=== PATIENT | female | born 1980 | race Caucasian/White ===

== ENCOUNTER 2023-02-25 16:23 | Outpatient (CLI) | payer OTHER, SELFPAY ==
--- NOTE | ~2023-02-25 | MM_ITS ---
EXAMINATION: MM screening amanda BI w maikel HISTORY: Screening mammogram TECHNIQUE: Craniocaudal and mediolateral oblique 3-D tomosynthesis images were obtained and synthetic 2-D images were generated. CAD analysis was submitted and interpreted. COMPARISON: No prior mammogram is available for comparison at this institution. BREAST PARENCHYMAL COMPOSITION: There are scattered areas of fibroglandular density. FINDINGS: There is no evidence of suspicious mass, calcification, or architectural distortion to sugg est malignancy in either breast. There has been no suspicious interval change. IMPRESSION: 1. No mammographic evidence of malignancy. 2. Recommend routine screening mammography in one year. BI-RADS Category 1: Negative Reviewed, dictated and finalized at location A.
== END 2023-02-25 16:24 | disposition home or self-care (01) ==
LOC: ANHIMG 16:25
PROVIDERS: Visit Provider Obstetrics & Gynecology Gynecology
DX: Z12.31 Encounter for screening mammogram for malignant neoplasm of breast (principal)
CPT/HCPCS: 77063; 77067

== ENCOUNTER 2024-10-11 11:56 | Outpatient (CLI) | payer MEDICAID, SELFPAY ==
--- NOTE | ~2024-10-11 | US_ITS ---
US OB <=14 wk fetus w TV Ordering provider: Lila Giordano MD History: . spotting first trimester . Comparison: None. Technique: Transabdominal and endovaginal ultrasound of the pelvis (Doppler ultrasound interrogation techniques used as needed for this exam.) FINDINGS: CERVIX: Normal. UTERUS: Measures 9.2x 4.8x 5.7 cm in length which is within normal limits and is anteverted. No myom etrial masses. ENDOMETRIUM: Diffusely thickened measuring 17 mm. (No endometrial masses, cysts or fluid. No gestatio nal sac seen. CUL DE SAC: No free fluid. RIGHT OVARY: Normal in size measuring 3.4x 1.6x 1.7 cm. Normal echotexture. Doppler vascular flow pre sent. Simple cyst measuring 2.9 x 1.2 x 1.5 cm. LEFT OVARY: Normal in size measuring 1.8x 1.2x 2 cm. Normal echotexture. Doppler vascular flow presen t. ADNEXA: Normal. No mass. IMPRESSION: Thickened heterogeneous endometrium measuring 17 mm with no gestational sac. Follow-up advised. Right ovarian cyst. Otherwise, normal pelvic ultrasound. Reviewed, dictated and finalized at location A. IMPRESSION: Thickened heterogeneous endometrium measuring 17 mm with no gestational sac. Fo llow-up advised. Right ovarian cyst. Otherwise, normal pelvic ultrasound.
--- OUTSIDE RECORDS SUMMARY | 2024-10-11 14:25 | XMS_ITS | Clinical Summary ---
Author Organization [facility] Address [address] [place] [address] Care Team Providers Care Rat Exterminator Name Role Phone Rashaad Ramirez APRN Primary Care Provid er Allergies No known active allergies Encounters Date Type Department Care Team Description 10/08/2024 8:41 AM CDT - 10/08/2024 11:59 PM CDT Hospital Encounter [facility] Ultrasound [address] [place] [address] Encounter for screening for uncertain dates Discharge Disposition: Discharge to home or self care from Last 3 Months Surgical History Surgery Date Site/Laterality Comments US GUIDED BIOPSY LYMPH NODE SUPERFICIAL LEFT N/A BREAST BIOPSY 05/26/2024 Right Social History Tobacco Use Types Packs/Day Years Used Date Smoking Tobacco: Never Assessed Comments Unknown Sex and Gender Information Value Date Recorded Sex Assigned at Not on file Legal Sex Female 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 Gender Identity Not on file Sexual Orientation Not on file Obstetrics History Plan of Treatment Health Maintenance Due Date Last Done Comments Breast Cancer Screening-Mammogram 1982 Cervical Cancer Screening 1982 Depression Screening 1982 Hepatitis C Screening 1982 DTaP/Tdap/Td Vaccine (1 - Tdap) 1993 Varicella Vaccines (1 of 2 - 13+ 2-dose series) 1995 Hepatitis B Screening 02/02/2000 Regular Well Visit/Exam 18-64 02/02/2000 Covid-19 Vaccine (3 - 2023-2 5 season) 2024 04/04/2021, 03/07/2021 Influenza Vaccine Completed 04/02/2024, 05/16/2022, 04/27/2020 HPV Vaccines Aged Out No longer eligi ble based on patient's age to complete this topic Pneumococcal vaccine <65 Aged Out No longer eligible based on patient's age to complete this topic Insurance [employer] Care Teams Rat Exterminator Relationship Specialty Start Date End Date Rashaad Ramirez APRN [address] [place] [address] PCP - General Nurse Practitioner 06/03/24
--- OUTSIDE RECORDS SUMMARY | 2024-10-11 14:25 | XMS_ITS | Referral Summary ---
Author Organization [facility] Address [address] [place] [address] Care Team Providers Care Political Science Research Assistant Name Role Phone Yola Maya MD Primary Care Provider + Source Comments [facility],non-owned Affiliates and Associated Physician Practices is amultiple site organization consisting of ambulatory clinics and hospital sitesin [place], [place], [place] and [place]. This disclosure is being madepursuant to the Care Everywhere program and may not contain all information available regarding this patient. Last updated 18.[facility] Allergies No known active allergies Medications * Be aware that medications may not be up to date on this document. Alwaysverify current medications with the patient. Medication Sig Dispensed Refills Start Date End Date Status BusPIRone HCl (BUSPAR PO) Active LISINOPRIL PO Active medroxyPROGESTERone Acetate (DEPO-PROVERA IM) Active Social History Tobacco Use Types Packs/Day Years Used Date Smoking Tobacco: Every Day Smokeless Tobacco: Never Sex and Gender Information Value Date Recorded Sex Assigned at Not on file Gender Identity Not on file Sexual Orientation Not on file Last Filed Vital Signs Vital Sign Reading Time Taken Comments Blood Pressure 114/66 09/24/2019 3:15 PM STORE CONSULTANT Pulse 98 09/24/2019 3:15 PM STORE CONSULTANT Temperature 36.8 C (98.3 F) 09/24/2019 3:15 PM STORE CONSULTANT Respiratory Rate 16 09/24/2019 3:15 PM STORE CONSULTANT Oxygen Saturation 98% 09/24/2019 3:15 PM STORE CONSULTANT Inhaled Oxygen Concentration - - Weight 108.9 kg (240 lb) 09/24/2019 3:15 PM STORE CONSULTANT Height 175.3 cm (5' 9 ) 09/24/2019 3:15 PM STORE CONSULTANT Body Mass Index 35.44 09/24/2019 3:15 PM STORE CONSULTANT Plan of Treatment Not on file Care Teams Political Science Research Assistant Relationship Specialty Start Date End Date Yola Maya MD [address] [place] [address] PCP - General Internal Medicine 09/24/19
--- OUTSIDE RECORDS SUMMARY | 2024-10-11 14:25 | XMS_ITS | Continuity of Care Document ---
Author Organization [employer] [place] Address [address] [place] [address] Phone Care Team Providers Care Advanced Practice Nurse Name Role Phone Yola Hancock DO Unavailable Unavailable Allergies, Adverse Reactions, Alerts Substance Reaction Status Criticality No Known Allergies Active No Inform ation Medications Medication Instructions Dosage Effective Dates (start - stop) Status Comments venlafaxine ER 150 mg capsule,extended release 24 hr TAKE ONE CAPSULE BY MOUTH every DAY - Active hydrochlorothiazide 25 mg tablet take 1 tablet by oral route every day 25 MG - Active prednisone 50 mg tablet take 1 tablet by oral route every day 50 MG - Active albuterol sulfate HFA 90 mcg/actuation aerosol inhaler inhale 2 puff by inhalation route every 4 - 6 hours as needed as needed 180 MCG - Active Augmentin 875 mg-125 mg tablet take 1 tablet by oral route every 12 hours - Active Guaifenesin AC 10 mg-100 mg/5 mL oral liquid take 10 milliliter by oral route every 4 hours as needed as needed 10.00 milliliter - Active Tessalon Perles 100 mg capsule take 1 capsule by oral route 3 times every day as needed for cough as needed - Active bupropion HCl XL 150 mg 24 hr tablet, extended release take 1 tablet by oral route every day 150 MG - Active lisinopril 20 mg tablet take 1 tablet by oral route every day 20 MG - Active increased dose desoximetasone 0.25 % topical cream apply by topical route 2 times every day a thin layer to the affected area(s) ; rub in gently and completely 0.00 - Active FerrouSul 325 mg (65 mg iron) tablet take 1 by Oral route every day 1 - Active Vitamin D2 1,250 mcg (50,000 unit) capsule take 1 capsule by oral route every week 01235 UNITS - Active Procedures Procedure Date OFFICE [id number] BODY MASS INDEX DOCD SYST BP LT 130 MM HG DIAST BP 80-89 MM HG Brief Emotional/Behavioral A ssessment, With Scoring/Doct, Per Stndrd Instrument Clin depression screen doc Brief Emotional/Behavioral A ssessment, With Scoring/Doct, Per Stndrd Instrument OFFICE [id number] BODY MASS INDEX DOCD SYST BP GE 130 - 139MM HG DIAST BP >= 90 MM HG Brief Emotional/Behavioral A ssessment, With Scoring/Doct, Per Stndrd Instrument Brief Emotional/Behavioral A ssessment, With Scoring/Doct, Per Stndrd Instrument Clin depression screen doc OFFICE [id number] BODY MASS INDEX DOCD SYST BP >= 140 MM HG6 IT DIAST BP 80-89 MM HG Pt inelig neg scrn depres GENERAL HEALTH PANEL LIPID PANEL URINALYSIS, REFLEX (UA) VITAMIN D, 25-HYDROXY ROUTINE VENIPUNCTURE OFFICE [id number] BODY MASS INDEX DOCD SYST BP GE 130 - 139MM HG DIAST BP 80-89 MM HG Advance Directives Directive Yes / No Effective Date File Name Life Support Not Answered N/A N/A Intubation Not Answered N/A N/A Antibiotics Not Answered N/A N/A IV Fluid Support Not Answered N/A N/A Tube Feed Not Answered N/A N/A Other Directive N/A N/A WARNING:The information contained in this section is historical and is provided for information only and does not constitute a legal document or any assurance that the information is still accurate. Please verify the information with the degroot of the legal document before using it for clinical purposes. Encounters Encounter Description Practice Location Reason(s) For Visit Diagnoses Date Provider Providers Copied on Encounter [facility], [address], [place], [place], [id number] , tel: [phone] [facility] No Information 5 Karissa Aceves. [address] [place] [address], [id number] , . tel: [phone] [facility], [address], [place], [place], [id number] , tel: [phone] [facility] Internal Medicine No Information 2 Marley Murphy. [address] [place] [address], [id number] , [place]. tel: [phone] [facility], [address], [place], [place], [id number] , tel: [phone] [facility] Internal Medicine No Information 2 Karissa Aceves. [address] [place] [address], [id number] , [place]. tel: [phone] [facility], [address], [place], [place], [id number] , tel: [phone] [facility] Internal Medicine No Information 1 Karissa Aceves. [address] [place] [address], [id number] , [place]. tel: [phone] [facility], [address], [place], [place], [id number] , [place] tel: [phone] [facility] Internal Medicine No Information 1 Karissa Aceves. [address] [place] [address], [id number] , . tel: [phone] OFFICE [id number]-SD PANDED [facility], [address], [place], [place], [id number] , tel: [phone] [facility] Internal Medicine cough (chief complaint) Body mass index [BMI] 35.0-35.9, adultUpper respiratory tract infection, unspecified type 1 Epplin Katherine. [address] [place] [address], [id number] , [place]. tel: [phone] Referring Provider: Yola Berumen, [address] [place] [address], [address] . tel:[phone] OFFICE TFJNO-UCW-EK [facility], [address], [place], [place], [id number] , tel: [phone] [facility] Internal Medicine Chronic Conditions (chief complaint) Body mass index (BMI) 35.0-35.9, adultMDD (major depressive disorder), recurrent episode, mildAnxietySyncope, unspecified syncope type 1 Epplin Katherine. [address] [place] [address], [id number] , [place]. tel: [phone] Referring Provider: Yola Berumen, [address] [place] [address], [address] . tel:[phone] OFFICE FOOPN-PLH-RC [facility], [address], [place], [place], [id number] , tel: [phone] [facility] Internal Medicine syncope (chief complaint) Body mass index (BMI) 36.0-36.9, adultMDD (major depressive disorder), recurrent episode, mildAnxietyEssential hypertensionSyncope, unspecified syncope type 1 Epplin Katherine. [address] [place] [address] [place], [id number] , . tel: [phone] Referring Provider: Yola Berumen, [address] [place] [address], [address] . tel:[phone] OFFICE SYRSV-AVI-FB -MED [facility], [address], [place], [place], [id number] , [place] tel: [phone] [facility] Internal Medicine Chronic Conditions (chief complaint)n ew pt (chief complaint) Body mass index (BMI) 35.0-35.9, adultSeasonal allergiesEssential hypertensionHyperlip idemia, unspecified hyperlipidemia typeChronic diarrheaAnxietyMDD (major depressive disorder), recurrent episode, mildEczema, unspecified typeTobacco useVitamin D deficiency 1 Marley Murphy. [address] [place] [address], [id number] , . tel: [phone] Referring Provider: Yola Berumen, [address] [place] [address], [address] . tel:[phone] Family History Family Member Type Diagnosis Age At Onset Mother Problem depression Mother Problem hypertension Father Problem Allergies Father Problem depression Mother Problem Irritable bowel syndrome Problem Family history of alzheimer' s disease Mother Problem malignant neopla sm of breast in first degree relative Problem Family history o f malignant neoplasm of urinary bladder Problem Family history of Eczema Sister Problem Mental illness Mother Problem Mental illness Problem Family history of Cardiovasc ular disease Mother Problem Diabetes mellitus Mother Problem Obesity Mother Problem raised blood lipids Father Problem hypertension Immunizations Vaccine Date Status Comments [employer] COVID19 Vacc ine, 0.3mL per dose, 2 doses, administered 21 days apart administered Note: [facility] ; S ource: Other Provider [employer] COVID19 Vacc ine, 0.3mL per dose, 2 doses, administered 21 days apart administered Note: [facility] ; S ource: Other Provider Fl[employer]one Quad, preservative f ree, split virus, 0.5mL dosage administered Note: [employer] ; Source: Other Provider Payers Payer name Insurance type Covered green party ID Authoriza tion(s) No Information Social History Type Description Quantity Date Captured Comments Alcohol Use Details Unknown Caffeine Use Details Unknown Tobacco Use Status Smoking Status No Information Sex Female Sexual Orientation Straight or heterosexual Gender Identity Female Chief Complaint And Reason For Visit No Information Reason For Referral Reason For Referral No Information Plan Of Treatment Date Type Action Status Goal Dietary management education , guidance, and counseling completed Goal Dietary management education , guidance, and counseling completed Goal Dietary management education , guidance, and counseling completed Goal Dietary management education , guidance, and counseling completed Referral Referred To: Edwin Domí[place], [phone] Ordered: Referrals: Cardiology. Edwin Domínguez MD. Evaluation/diagnostic/treatment - Level 3 Appointment date/timeframe: 12/22/2020 ordered History Of Present Illness Encounter Date Complaint History Of Prese nt Illness cough pt presented for acute visit for c/o cough, ROMANO, sinus pressure, nasal drainage, ear pain, sore throat and subjective fever x3 daysendorses sick contact with dtr covid vacc'd x2has been taking sudafed states cough is concerning because it causes sob and has caused her to vomit; which leads to increased anxietydenies cp, palpitations, wheezing, loss taste/smellcontinues to smokewill send inhaler and cough syrup covid swab sent out Chronic Conditions *See Chronic Conditions HPI syncope Patient presente d for emergency room follow-up, she visited the ER on 10/25/20diagnosis syncopesince then she had 2 more syncopal episodes, both occurring while at work (11/02 and 11/06)she endorses preceding event of bilateral tinnitus, she states she would close her eyes and shortly thereafter wake up on the floorshe states witnesses told her she was only out for a few seconds at a timeafter the 1st episode of syncope, she visited the emergency room and was advised to stay for observation, however she left AMA stating she had no one to care for her sonthe most recent 2 episode she did not call EMS or have ER/UC evaluationPatient reports she had elevated blood pressure in the emergency room, since it remains elevated, will increase lisinopril 20 mg daily (we discussed possibility of sleep study in the future)she had head CT, labs, and chest x-ray which per patient report were unremarkableshe is agreeable at this time to follow up with cardiology for further evaluationshe is advised to avoid driving until cleareddenies cp, palpitations, sob, cough, wheezing, n/v/d/f/cpatient also endorses she is in the process of acquiring short-term medical disability for leave of absence at her work r/t increased anxiety due to stress at workstates she is tearful often at her job and feels she is almost at 'nervous breakdown'history of PTSD and anxiety related to being held at [employer] about 10 years ago and has remained at the same jobshe is agreeable to speak with a therapist or counselor at this time, along with increasing her venlafaxinewill add a 75 mg dose to see if it is tolerated, if so we can refill 225 mg tabletsshe denys SI/HI new pt Pt presented to establish new PCP; [facility] allergies, HTN, HLD, anxiety, depressionFamily Hx: Mother: HTN, breast CA, DM; Father: depression, HTNSocial Hx: smokin0ycer31 years alcohol: no drug use: deniesSurgical Hx: appy, choleHealth Maintenance/ Specialists: ObGyrenu - Dr StubbsKDAImmunizations: UTD on required vaccinations, receives yearly flu vaccine Chronic Conditions *See Chronic Conditions HPI Chronic Conditions Functional Status Date Functional Assessmen t No Information Instructions Date Instruction Additional Infor angelo rest and drink plent y of fluidsrecommend Flonase spray 1 spray each nostril dailyyou can use saline nasal spray as needed throughout the day, and before using the Flonaseover the counter Zyrtec or Claritin as directedTylenol 1000mg every 8 hours as needed for sinus pressureprescription for cough syrup with codeine and tessalon perles as neededinhaler as neededoff of work for 2 dayscovid test today, we will call you with resultscall sooner if you feel worse Related to Upper respiratory tract infection, unspecified type Dietary management e ducation, guidance, and counseling Related to Body mass index (BMI) 35.0-35.9, adult Disease process Giving encouragement to exercise Related to Body mass index (BMI) 35.0-35.9, adult no driving no workin g until cleared by cardiologyreturn to [place] in January as scheduledstay hydrated and change positions slowlywear compression stockings during the dayif you notice the ringing, sit down immediately Related to Syncope, unspecified syncope type continue venlafaxine 150mg dailywill send prescription Wellbutrin 150mg dailywe can discuss increasing the dose to twice daily in Januaryrecommend therapist consultationwe contacted the care management group to reach out to you with therapists/counselors in October Related to Anxiety Continue current med ications. Be sure to get plenty of rest, stay hydrated, try to improve nutritionExercise as tolerated, you can try yoga, meditation, or essential oilsCall office for worsening depression symptoms.Status: Able to self-manage condition. Goals: Your goal is to contact a counselor. Barriers: No barriers to goal achievement have been identified. Related to MDD (major depressive disorder), recurrent episode, mild Dietary management e ducation, guidance, and counseling Related to Body mass index (BMI) 35.0-35.9, adult Giving encouragement to exercise Related to Body mass index (BMI) 35.0-35.9, adult Disease process no drivingwe are darmikey leyva on the [facility] hydrated and change positions slowlywear compression stockings during the dayif you notice the ringing, sit down immediatelycall if it happens againwill send you to the operations officer afloat for further evaluationP[facility] Related to Syncope, unspecified syncope type Continue current med ications. Be sure to get plenty of rest, stay hydrated, try to improve nutritionExercise as tolerated, you can try yoga, meditation, or essential oilsCall office for worsening depression symptoms.Status: Able to self-manage condition. Goals: Your goal is to contact a counselor. Barriers: No barriers to goal achievement have been identified. Related to MDD (major depressive disorder), recurrent episode, mild blood pressure is up increase lisinopril to 20mg dailyAvoid salty foodsExercise as toleratedreturn in 3 monthscall with questions/concerns AVOID CROWDS - REMAIN 6 FEET APART FROM PEOPLE. WEAR A MASK. AVOID TOUCHING YOUR FACE. AVOID UNNECESSARY TRAVEL. WASH HANDS OFTEN. CALL WITH QUESTIONS/CONCERNS Related to Essential hypertension continue medication -- increase to 150mg daily plus 75mg at night. recommend therapistwill contact the rifle case repairer who will reach out to you with therapists/counselors Related to Anxiety Disease process Giving encouragement to exercise Related to Body mass index (BMI) 36.0-36.9, adult Dietary management e ducation, guidance, and counseling Related to Body mass index (BMI) 36.0-36.9, adult we will check the le polly todaycontinue the supplement Related to Vitamin D deficiency continue cream Related to Eczem a, unspecified type Blood pressure is at treatment goal on current medicationsContinue current medications, will send refillsAvoid salty foodsExercise as tolerated will check labs today and call you with resultsreturn in 3 monthscall with questions/concerns AVOID CROWDS - REMAIN 6 FEET APART FROM PEOPLE. WEAR A MASK. AVOID TOUCHING YOUR FACE. AVOID UNNECESSARY TRAVEL. WASH HANDS OFTEN. CALL WITH QUESTIONS/CONCERNS Related to Essential hypertension cold compress to eye s as neededtry over the counter Phi Coronawidave send antibiotic dropscontinue Zyrteccall Friday with an update or sooner if it gets worse Related to Seasonal allergies since gallbladder re movedstart probiotic dailycall if it gets worsewe will reassess at the next visit Related to Chronic diarrhea Continue current med ications. Be sure to get plenty of rest, stay hydrated, try to improve nutritionExercise as tolerated, you can try yoga, meditation, or essential oilsCall office for worsening depression symptoms.Status: Able to self-manage condition. Goals: Your goal is to contact a counselor. Barriers: No barriers to goal achievement have been identified. Related to MDD (major depressive disorder), recurrent episode, mild we will check choles terol levels todayheart healthy diet, low fat low cholesterol Related to Hyperlipidemia, unspecified hyperlipidemia type continue medicationrecommend the rapist Related to Anxiety Giving encouragement to exercise Related to Body mass index (BMI) 35.0-35.9, adult Giving encouragement to exercise Related to Body mass index (BMI) 35.0-35.9, adult Dietary management e ducation, guidance, and counseling Related to Body mass index (BMI) 35.0-35.9, adult Disease process Assessments Type Assessment Date No Information Patient Care Teams Name Effective Dates (start - stop) Status Members No Information
--- OUTSIDE RECORDS SUMMARY | 2024-10-11 14:25 | XMS_ITS | Clinical Summary ---
Author Organization [facility] Address [address] [facility] [address] [place] [address] Phone Care Team Providers Care Rhythmic Gymnastics Coach Name Role Phone Yola Hancock DO Primary Care Provider [phone] Becca Heath MD Unavailable Allergies Active Allergy Reactions Criticality Noted Date Comments Venlafaxine Other (see Comments) High 06/09/2024 Medications buPROPion (WELLBUTRIN) 300 MG TABLET SR 24 HR XL tablet Take 1 Tablet by mouth daily. 4 Active pantoprazole (PROTONIX) 40 MG Tablet Delayed Response Take 40 mg by mouth daily. Active hydroCHLOROthiazide 25 MG Tablet Take 25 mg by mouth daily. 1 Active lisinopril (PRINIVIL, ZESTRIL) 20 MG Tablet Take 20 mg by mouth daily. 4 Active montelukast (SINGULAIR) 10 MG Tablet Take 10 mg by mouth daily. Active levothyroxine (SYNTHROID) 25 MCG Tablet Take 25 mcg by mouth daily. Active triamcinolone (ARISTOCORT) 0.5 % Cream Apply 2 times daily. 4 Active MULTIPLE VITAMIN PO Take 1 Tablet by mouth daily. Active Levocetirizine Dihydrochloride (Xyzal Allergy 24HR) 5 MG Tablet Take by mouth. 2 Active Active Problems Problem Noted Date Diagnosed Date Breasts asymmetrical 06/09/2024 Essential hypertension 06/09/2024 Malignant neoplasm of upper- outer quadrant of right breast in female, estrogen receptor positive 06/09/2024 Cancer Staging:Clinical stage from 06/09/2024:Stage IA(cT1b, cN0, cM0, G1, ER+, MT+, HER2-) - Signed by Becca Heath MD on 06/09/2024 Abnormal mammogram 04/16/2024 Encounters Date Type Department Care Team Description 08/05/2024 10:30 AM SATELLITE DISH REPAIRER Office Visit [facility] [address] [address] Becca Heath MD Malignant neoplasm of upper-outer quadrant of right breast in female, estrogen receptor positive (HCC) (Primary Dx) 08/05/2024 Travel 07/14/2024 10:45 AM SATELLITE DISH REPAIRER Office Visit [facility] [address] [address] Becca Heath MD Malignant neoplasm of upper-outer quadrant of right breast in female, estrogen receptor positive (HCC) (Primary Dx) 07/14/2024 Travel from Last 3 Months Immunizations Immunization Administration Dates Next Due Influenza Vaccine, Quadrivalent, PF 04/02/2024,1 Influenza, Injectable, Quadrivalent 05/16/2022 Family History Medical History Relation Name Comments Breast Cancer Mother Hypertension Mother Kidney Disease Mother Breast Cancer Sister Relation Name Status Comments Father Alive Mother Alive Sister Alive Social History Tobacco Use Types Packs/Day Years Used Date Smoking Tobacco: Every Day Cigarettes Smokeless Tobacco: Never Tobacco Cessation:Ready to Q uit: Yes; Counseling Given: Yes Alcohol Use Standard Drinks/Week Comments Not Currently 0 (1 standard drink = 0.6 oz pur e alcohol) Comments Unknown Sex and Gender Information Value Date Recorded Sex Assigned at Not on file Legal Sex Female 2:27 PM SATELLITE DISH REPAIRER Gender Identity Not on file Sexual Orientation Not on file Last Filed Vital Signs Vital Sign Reading Time Taken Comments Blood Pressure 138/88 08/05/2024 10:46 AM SATELLITE DISH REPAIRER Pulse 88 08/05/2024 10:46 AM SATELLITE DISH REPAIRER Temperature 36.9 C (98.4 F) 08/05/2024 10:46 AM SATELLITE DISH REPAIRER Respiratory Rate 18 07/14/2024 10:49 AM SATELLITE DISH REPAIRER Oxygen Saturation 98% 08/05/2024 10:46 AM SATELLITE DISH REPAIRER Inhaled Oxygen Concentration - - Weight 111.8 kg (246 lb 8 oz) 08/05/2024 10:46 A M SATELLITE DISH REPAIRER Height 175.3 cm (5' 9 ) 08/05/2024 10:46 AM SATELLITE DISH REPAIRER Body Mass Index 36.4 08/05/2024 10:46 AM SATELLITE DISH REPAIRER Plan of Treatment Health Maintenance Due Date Last Done Comments Hepatitis C Virus (HCV) Screening 1982 TdaP Immunization 1982 Hepatitis B Immunization (1 of 3 - 19+ 3-dose series) 2001 Pneumococcal Immunization Combined (1 of 2 - PCV) 2001 Pap Smear 2003 Cervical Cancer Screening (CCS) 02/02/2012 HPV/Cotest 02/02/2012 SARS-COV-2 Immunization (3 - Pfizer risk series) 05/02/2021 04/04/2021, 03/07/2021 Mammogram 05/26/2025 05/26/2024 Respiratory Syncytial Virus (RSV) Immunization (Adult) (1 - 1-dose 75+ series) 2057 Influenza Immunization Completed , 05/16/2022, 04/27/2020 Discussion re Starting/Frequency of Mammograms Completed 05/26/2024 Meningococcal Immunization (ACWY) Aged Out No longer eligible b ased on patient's age to complete this topic Rotavirus Immunization Aged Out No lo nger eligible based on patient's age to complete this topic Insurance MEDICAID [place] Care Teams Rhythmic Gymnastics Coach Relationship Specialty Start Date End Date Yola Hancock DO [address] [place] [id number] PCP - General Family Medicine 06/02/24 Becca Heath MD [address] [place] [id number] Consulting Physician Oncology 06/02/24
--- OUTSIDE RECORDS SUMMARY | 2024-10-11 14:25 | XMS_ITS | Clinical Summary ---
Author Organization [employer] [address] - [address] Address [address] [facility] [address] [place] [address] Phone Care Team Providers Care Manager Diversity Name Role Phone Unavailable Primary Care Provider Unavailabl e Social History Tobacco Use Types Packs/Day Years Used Date Smoking Tobacco: Never Assessed Comments Unknown Sex and Gender Information Value Date Recorded Sex Assigned at Not on file Legal Sex Female 10:29 PM CDT Gender Identity Not on file Sexual Orientation Not on file Plan of Treatment Health Maintenance Due Date Last Done Comments DTAP/TDAP/TD VACCINES (1 - Tdap) 2001 HEPATITIS B VACCINES (1 of 3 - 19+ 3-dose series) 2001 CERVICAL CANCER SCREENING 02/02/2012 BREAST CANCER SCREENING 2022 INFLUENZA VACCINE (#1) 2024 08/02/2013 HPV VACCINES Aged Out No longer eligi ble based on patient's age to complete this topic Insurance [facility] [id number] Member Subscriber Plan / Payer (Ef fective 2021-Present) Name:Abby Bunch Relation to Subscriber:Self Name:Abby Bunch Payer ID:[id number] (NAIC) [facility] Address: [facility] [id number] [place] [id number]
--- OUTSIDE RECORDS SUMMARY | 2024-10-11 14:25 | XMS_ITS | Patient Health Summary ---
Author Organization [facility] Address [address] [facility] [place] [address] Care Team Providers Care Air Grinder Name Role Phone Yola Maya MD Primary Care Provider + Note from [facility],non-owned Affiliates and Associated Physician Practices is amultiple site organization consisting of ambulatory clinics and hospital sitesin [place], [place], [place] and [place]. This disclosure is being madepursuant to the Care Everywhere program and may not contain all information available regarding this patient. Last updated 18.[email or web address] [employer] Allergies No known active allergies Medications * Be aware that medications may not be up to date on this document. Alwaysverify current medications with the patient. * BusPIRone HCl (BUSPAR PO) * LISINOPRIL PO * medroxyPROGESTERone Acetate (DEPO-PROVERA IM) Social History Tobacco Use Types Packs/Day Years Used Date Smoking Tobacco: Every Day Smokeless Tobacco: Never Sex and Gender Information Value Date Recorded Sex Assigned at Not on file Gender Identity Not on file Sexual Orientation Not on file Last Filed Vital Signs Vital Sign Reading Time Taken Comments Blood Pressure 114/66 09/24/2019 3:15 PM CLINICAL QUALITY RN Pulse 98 09/24/2019 3:15 PM CLINICAL QUALITY RN Temperature 36.8 C (98.3 F) 09/24/2019 3:15 PM CLINICAL QUALITY RN Respiratory Rate 16 09/24/2019 3:15 PM CLINICAL QUALITY RN Oxygen Saturation 98% 09/24/2019 3:15 PM CLINICAL QUALITY RN Inhaled Oxygen Concentration - - Weight 108.9 kg (240 lb) 09/24/2019 3:15 PM CLINICAL QUALITY RN Height 175.3 cm (5' 9 ) 09/24/2019 3:15 PM CLINICAL QUALITY RN Body Mass Index 35.44 09/24/2019 3:15 PM CLINICAL QUALITY RN Procedures * STREP A SCREEN - POINT OF CARE (AMB) STL(Performed 09/24/2019) Performed for Acute URI Results * STREP A SCREEN (09/24/2019) Strep A Rapid POCT Negative Negative Strep A Internal Control Present Lot # [id number] Expiration Date 04/26/21 Throat ENTIRE THROAT (SURFACE REGION OF NECK) / Unknown 09/24/2019 Kia Mccarthy DIRECTOR MARKETING [employer]NALYT[employer]-[facility] - POINT OF CARE ORDERABLES Care Teams Air Grinder Relationship Specialty Start Date End Date Yola Maya MD [address] [place] [address] PCP - General Internal Medicine 09/24/19
--- OUTSIDE RECORDS SUMMARY | 2024-10-11 14:25 | XMS_ITS | Clinical Summary ---
Author Organization [facility] [employer] Address [address] [facility] [place] [address] Care Team Providers Care Mortgage Loan Processing Clerk Name Role Phone Yola Maya MD Primary Care Provider + Source Comments [facility] [employer],non-owned Affiliates and Associated Physician Practices is amultiple site organization consisting of ambulatory clinics and hospital sitesin [place], [place], [place] and [place]. This disclosure is being madepursuant to the Care Everywhere program and may not contain all information available regarding this patient. Last updated [email or web address] Allergies No known active allergies Medications * [...] Comments Blood Pressure 114/66 09/24/2019 3:15 PM DEPUTY JAILER Pulse 98 09/24/2019 3:15 PM DEPUTY JAILER Temperature 36.8 C (98.3 F) 09/24/2019 3:15 PM DEPUTY JAILER Respiratory Rate 16 09/24/2019 3:15 PM DEPUTY JAILER Oxygen Saturation 98% 09/24/2019 3:15 PM DEPUTY JAILER Inhaled Oxygen Concentration - - Weight 108.9 kg (240 lb) 09/24/2019 3:15 PM DEPUTY JAILER Height 175.3 cm (5' 9 ) 09/24/2019 3:15 PM DEPUTY JAILER Body Mass Index 35.44 09/24/2019 3:15 PM DEPUTY JAILER Plan of Treatment Health Maintenance Due Date Last Done Comments LIPID TESTING 1982 MAMMOGRAM 1982 PAP SMEAR 1982 HIV SCREENING 1997 HEPATITIS C SCREENING 01/28/2000 DTAP/TDAP/TD VACCINES (1 - Tdap) 2001 HEPATITIS B VACCINE (1 of 3 - 19+ 3-dose series) 2001 COVID-19 VACCINE (1 - 2023-2 5 season) 2024 INFLUENZA VACCINE (#1) 2024 DEPRESSION SCREENING 07/28/2024 ZOSTER VACCINE (1 of 2) 02/02/2032 HIB VACCINE Aged Out No longer eligi ble based on patient's age to complete this topic HPV VACCINE Aged Out No longer eligi ble based on patient's age to complete this topic MENINGOCOCCAL (Group B) VACC INE SHARED DECISION-MAKING Aged Out No longer eligibl e based on patient's age to complete this topic MENINGOCOCCAL GROUPS A/C/Y/W VACCINE Aged Out No longer eligible b ased on patient's age to complete this topic PNEUMOCOCCAL VACCINE Aged Out No long er eligible based on patient's age to complete this topic Care Teams Mortgage Loan Processing Clerk Relationship Specialty Start Date End Date Yola Maya MD [address] [place] [id number] PCP - General Internal Medicine 09/24/19
--- OUTSIDE RECORDS SUMMARY | 2024-10-11 14:25 | XMS_ITS | Clinical Summary ---
Author Organization [facility] Address Formerly [facility] [place] [address] Care Team Providers Care Goodwill Ambassador Name Role Phone Wilson Yen MD Unavailable Rashaad Ramirez NP Primary Care Provider [phone] Allergies Active Allergy Reactions Criticality Noted Date Comments Venlafaxine Dizziness 06/28/2024 Medications lisinopril 20 MG tablet Take 1 tablet (20 mg total) by mouth daily. 1 Active hydroCHLOROthiazide 25 MG tablet Take 1 tablet (25 mg total) by mouth every morning. 1 Active montelukast (SINGULAIR) 10 MG tablet Take 1 tablet (10 mg total) by mouth daily. 2 Active levothyroxine (SYNTHROID) 25 MCG tablet Take 1 tablet (25 mcg total) by mouth nightly. 2 Active pantoprazole EC (PROTONIX) 40 MG tablet Take 1 tablet (40 mg total) by mouth daily. 2 Active buPROPion XL (WELLBUTRIN XL) 300 MG 24 hr tablet Take 1 tablet (300 mg total) by mouth every morning. 9 Active Multiple Vitamin (MULTIVITAMIN ADULT OR) Take 1 tablet by mouth daily. Active diphenhydrAMINE (ALLERGY) 25 MG tablet Take 1 tablet (25 mg total) by mouth daily. Active doxycycline hyclate (VIBRAMYCIN) 100 MG capsule Take 1 capsule (100 mg total) by mouth 2 (two) times daily. 4 Active oxyCODONE-acetamino phen (PERCOCET) 5-325 MG tabletIndications:C hronic Pain Take 1 tablet by mouth every 4 (four) hours as needed. Indications: Chronic Pain 30 tablet 4 Active ondansetron (ZOFRAN-ODT) 8 MG disintegrating tablet Take 1 tablet (8 mg total) by mouth every 8 (eight) hours as needed for Nausea. 20 tablet 4 Active methylPREDNISolone, YONY, (MEDROL DOSEPAK) 4 MG tablet 6 TABLETS ON DAY ONE, 5 TABLETS DAY TWO, 4 TABLETS DAY THREE, 3 TABLETS DAY FOUR, 2 TABLETS DAY FIVE, AND 1 TABLET DAY SIX 1 each 4 Active Active Problems Problem Noted Date Diagnosed Date TIA (transient ischemic attack) 05/10/2022 Essential hypertension Syncope Major depressive disorder Anxiety Hyperlipemia Comments Yes Encounters Date Type Department Care Team Description 09/28/2024 8:45 AM LABEL DRIER - 09/28/2024 11:59 PM LABEL DRIER Hospital Encounter [facility] [place] [address] Una ms, Nicole Muñoz 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 Discharge Disposition: Home or Self Care (Routine Discharge) 09/28/2024 Travel 09/16/2024 9:15 AM LABEL DRIER - 09/16/2024 11:59 PM LABEL DRIER Hospital Encounter [facility] Radiation Oncology [address] [place] [address] [place] [address] Wilson Yen MD Consult Discharge Disposition: Home or Self Care (Routine Discharge) 09/06/2024 Telephone [facility] Radiation Oncology [address] [place] [address] [place] [address] Wilson Yen MD Appointment Request 08/05/2024 9:14 AM LABEL DRIER - 08/05/2024 11:59 PM LABEL DRIER Hospital Encounter [facility] Radiation Oncology [address] [place] [address] [place] [address] Wilson Yen MD Consult Discharge Disposition: Home or Self Care (Routine Discharge) 08/05/2024 Travel 07/24/2024 2:39 PM LABEL DRIER - 07/24/2024 3:26 PM LABEL DRIER Hospital Encounter [facility] [address] [place] [address] Rema Smith PA URI Discharge Disposition: Home or Self Care (Routine Discharge) 07/24/2024 Travel 07/15/2024 3:19 PM LABEL DRIER - 07/15/2024 11:59 PM LABEL DRIER Hospital Encounter [facility] [address] [place] [address] Becca Heath MD Discharge Disposition: Home or Self Care (Routine Discharge) from Last 3 Months Family History Medical History Relation Comments Allergies Father Depression Father Hypertension Father UT Maternal Grandfather Breast Cancer Mother Depression Mother Diabetes Mother Hyperlipidemia Mother Hypertension Mother IBS Mother Mental Health Mother Obesity Mother UT Paternal Grandfather Stroke Paternal Grandfather Mental Health Sister Relation Status Comments Father Alive Maternal Grandfather Mother Alive Paternal Grandfather Sister Social History Tobacco Use Types Packs/Day Years Used Date Smoking Tobacco: Former Cigarettes 0.5 23.1 2 002 - 09/07/2024 Smokeless Tobacco: Never Alcohol Use Standard Drinks/Week Comments Not Currently 0 (1 standard drink = 0.6 oz pur e alcohol) occ AUDIT-C Answer Date Recorded Q1: How often do you have a drink containing alc ohol? Never 11/29/2020 Average Number of Drinks Not on file 021 Frequency of Binge Drinking Not on file 11/2020 Comments Yes Sex and Gender Information Value Date Recorded Sex Assigned at Female 09/28/2024 8:40 AM LABEL DRIER Legal Sex Female 10:58 AM CDT Gender Identity Female 06/21/2022 6:13 AM LABEL DRIER Sexual Orientation Straight 06/21/2022 6: 13 AM LABEL DRIER Last Filed Vital Signs Vital Sign Reading Time Taken Comments Blood Pressure 150/88 09/16/2024 9:23 AM LABEL DRIER Pulse 94 09/16/2024 9:23 AM LABEL DRIER Temperature 36.3 C (97.4 F) 07/24/2024 2:41 PM LABEL DRIER Respiratory Rate 18 07/24/2024 2:41 PM LABEL DRIER Oxygen Saturation 100% 09/16/2024 9:23 AM LABEL DRIER Inhaled Oxygen Concentration - - Weight 115.6 kg (254 lb 12.8 oz) 09/16/2024 9:23 AM LABEL DRIER Height 175.3 cm (5' 9 ) 07/24/2024 2:41 PM LABEL DRIER Body Mass Index 37.63 07/24/2024 2:41 PM LABEL DRIER Plan of Treatment Upcoming Encounters Date Type Department Care Team (Late st Contact Info) Description 02/07/2025 10:00 AM CDT Appointment [facility] [place] [address] Nick Morrow MD [address] [place] [address] [phone] 02/07/2025 11:00 AM CDT Appointment [facility] [address] [place], [place] [address] Nick Morrow MD [address] [place] [address] [phone] Health Maintenance Due Date Last Done Comments Cervical Cancer Screening Pa p Smear (Age 30 to 64) Every 3 Years 1982 Annual Physical 1985 Hepatitis C 02/02/2000 DTaP, Tdap and Td Vaccines ( 1 - Tdap) 2001 Hepatitis B Vaccines (1 of 3 - 19+ 3-dose series) 2001 Cervical Cancer Screening Pa p with HPV Testing (Age 30 to 64) Every 5 Years 02/02/2012 Cervical Cancer Screening [facility] HPV 02/02/2012 ASCVD LDL 05/11/2023 05/11/2022 COVID-19 Vaccine (3 - 2023-2 5 season) 2024 04/04/2021, 03/07/2021 Mammogram Screening 05/26/2026 05/26/2024 RSV Immunization or 60+ Years (1 - 1-dose 75+ series) 2057 Influenza Adult Completed 04/02/2024, 05/16/2022, 04/27/2020 HPV Vaccines Aged Out No longer eligi ble based on patient's age to complete this topic Meningococcal B Vaccine Aged Out No l onger eligible based on patient's age to complete this topic Meningococcal Vaccine Aged Out No efra familia eligible based on patient's age to complete this topic Pneumococcal Vaccine: Pediatrics (0 to 5 Years) and At-Risk Patients (6 to 64 Years) Aged Out No longer eligible b ased on patient's age to complete this topic RSV Immunizations Under 20 Months Aged Out No longer eligible b ased on patient's age to complete this topic Procedures Procedure Name Priority Date/Time Associated Diagnosis Comments US OB <14WKS TA+TV Routine 09/28/2024 9: 53 AM LABEL DRIER Unsure of last menstrual period as reason for ultrasound scan ([facility]) CORONAVIRUS (COVID 19) STAT 07/24/2024 2:45 PM LABEL DRIER STREP A RAPID STAT 07/24/2024 2:45 PM LABEL DRIER INFLUENZA A & B STAT 07/24/2024 2:45 PM LABEL DRIER MG DIAGNOSTIC RT DIGI Routine 05/26/2024 3:30 PM CDT Abnormal mammogram LIPID PANEL Routine 05/11/2022 6:44 AM CDT from Last 3 Months or Most Recently Relevant to Health Maintenance Results * US OB <14WKS TA+TV (09/28/2024 9:53 AM LABEL DRIER) Anatomical Region Laterality Modality Ultrasound 09/28/2024 10:1 6 AM LABEL DRIER Impressions 09/28/2024 11:31 AM LABEL DRIER IMPRESSION: 1. Probable early intrauterine as evidenced by Intrauterine gestational sac with estimated gestational age of 5 weeks and 4 days. However, no definite yolk sac or pole seen at this time. Recommend serial beta hCG and follow-up sonogram to exclude ectopic and to confirm intrauterine . 3. Trace pelvic free fluid, nonspecific but likely physiologic. 4. Normal appearance of ovaries. The attending radiologist has reviewed the image(s) and agrees with the content of this report. Ordered By: NICOLE WRIGHT Interpreted By: Yanci Hernandez MD, 09/28/2024 10:16 AM Narrative 09/28/2024 11:31 AM LABEL DRIER [address] [address] US OB <14WKS TA+TV: 09/28/2024 9:03 AM CLINICAL HISTORY: Recent diagnosis of invasive ductal carcinoma status post right breast lumpectomy with negative margins and sentinel lymph node biopsy. Unknown last menstrual period. COMPARISON: None. TECHNIQUE: Limited pelvic ultrasound using transabdominal and transvaginal sonography. FINDINGS: The uterus measures 9.8 x 5.9 x 5.8 cm on transvaginal measurements. The uterus is not well seen on transabdominal imaging due to overlapping bowel loops and incomplete bladder filling. A small gestational sac is seen in the uterus fundus measuring approximately 0.7 x 0.8 x 0.7 cm and with an estimated gestational age of 5 weeks and 4 days. No definite yolk sac or pole is seen at this time. The right ovary measures 2.3 x 3.4 x 2.6 cm and the left ovary measures 2.2 x 1.5 x 2.7 cm. Blood flow is intact to both ovaries. No discrete ovarian mass is seen. Trace pelvic free fluid is seen. Procedure Note Giorgio Victoria MD - 09/28/[address] [address] US OB <14WKS TA+TV: 09/28/2024 9:03 AM CLINICAL HISTORY: Recent diagnosis of invasive ductal carcinoma statuspost right breast lumpectomy with negative margins and sentinel lymph nodebiopsy. Unknown last menstrual period. COMPARISON: None. TECHNIQUE: Limited pelvic ultrasound using transabdominal and transvaginalsonography. FINDINGS: The uterus measures 9.8 x 5.9 x 5.8 cm on transvaginal measurements. Theuterus is not well seen on transabdominal imaging due to overlapping bowelloops and incomplete bladder filling. A small gestational sac is seen inthe uterus fundus measuring approximately 0.7 x 0.8 x 0.7 cm and with anestimated gestational age of 5 weeks and 4 days. No definite yolk sac orfetal pole is seen at this time. The right ovary measures 2.3 x 3.4 x 2.6 cm and the left ovary measures2.2 x 1.5 x 2.7 cm. Blood flow is intact to both ovaries. No discreteovarian mass is seen. Trace pelvic free fluid is seen. IMPRESSION: 1. Probable early intrauterine as evidenced by Intrauterinegestational sac with estimated gestational age of 5 weeks and 4 days.However, no definite yolk sac or pole seen at this time. Recommendserial beta hCG and follow-up sonogram to exclude ectopic and toconfirm intrauterine . 3. Trace pelvic free fluid, nonspecific but likely physiologic. 4. Normal appearance of ovaries. The attending radiologist has reviewed the image(s) and agrees with thecontent of this report. Ordered By: NICOLE WRIGHT Interpreted By: Yanci Hernandez MD, 09/28/2024 10:16 AM us Nicole Wright ULTRASOUND Final Result * CORONAVIRUS (COVID 19) (07/24/2024 2:45 PM LABEL DRIER) CORONAVIRUS SARS COV 2 RNA NEGATIVE NEGATIVE 07/24/2024 3:12 PM LABEL DRIER [facility] Comment: NEGATIVE RESULTS DO NOT RULE OUT COVID 19 AND SHOULD NOT BE USED THE SOLE BASIS FOR TREATMENT OR PATIENT MANAGEMENT DECISIONS, INCLUDING INFECTION CONTROL DECISIONS. NEGATIVE RESULTS SHOULD BE CONSIDERED IN THE CONTEXT OF A PATIENT'S RECENT EXPOSURES, HISTORY AND THE PRESENCE OF CLINICAL SIGNS AND SYMPTOMS CONSISTENT WITH COVID 19. THE ID NOW COVID-19 2.0 TEST HAS BEEN AUTHORIZED BY THE FDA UNDER EAU FOR USE BY AUTHORIZED LABORATORIES. PERFORMED BY NUCLEIC ACID AMPLIFICATION FOR MOLECULAR QUALITATIVE DETECTION OF SARS-COV-2. SPECIMEN TYPE NASAL 07/24/2024 2:46 PM LABEL DRIER [facility] NASAL STRUCTURE / Unknown 07/24/2024 2:45 PM LABEL DRIER us Rema MOULTON MICROBIOLOGY - GENERAL ALEXX [place] Final Result Performing Organization Address City/[facility]/ZIP Co de Phone Number [facility] [address] [place] [phone], [place] * INFLUENZA A & B (07/24/2024 2:45 PM LABEL DRIER) SPECIMEN TYPE NASOPHARYNGEAL SWAB 07/24/2024 2:49 PM LABEL DRIER [facility] INFLUENZA A NEGATIVE NEGATIVE 07/24/2024 3:12 PM LABEL DRIER [facility] INFLUENZA B NEGATIVE NEGATIVE 07/24/2024 3:12 PM LABEL DRIER [facility] Comment: Interpretation: Negative for Influenza A and B. A negative result does not exclude influenza virus infection. If influenza is circulating in your community, a diagnosis of influenza should be considered based on a patient's clinical presentation and empiric antiviral treatment should be considered, if indicated. If more conclusive testing is needed for hospitalized inpatients, follow-up confirmatory testing with RT-PCR requires a separate order. NASAL STRUCTURE / Unknown 07/24/2024 2:45 PM LABEL DRIER us Rema [facility] - GENERAL ALEXX [place] Final Result [facility] [address] [place] [id number], [place] * STREP A RAPID (07/24/2024 2:45 PM LABEL DRIER) SPECIMEN TYPE THROAT 07/24/2024 2:46 PM LABEL DRIER [facility] RAPID STREP TEST NEGATIVE NEGATIVE 07/24/2024 3:09 PM LABEL DRIER [facility] STRUCTURE OF ANTERIOR PORTION OF NECK / Unknown 07/24/2024 2:45 PM LABEL DRIER us Rema [facility] MICROBIOLOG[facility] - GENERAL ORDTerry WAY[place] Final Result [facility] [address] [place] [address], [place] * MG DIAGNOSTIC RT DIGI (05/26/2024 3:30 PM CDT) Anatomical Region Laterality Modality Breast Right Mammography 05/26/2024 4:02 PM CDT Impressions 05/26/2024 4:04 PM CDT =====IMPRESSION:===== Biopsy clip in right breast. ASSESSMENT: WAITING FOR PATHOLOGY Recommendation: 1: Waiting on Pathology Right COMMENTS: Ordered By: NICK MORROW Interpreted By: Royal Horn, 05/26/2024 4:02 PM Narrative 05/26/2024 4:04 PM CDT [facility] [address] [place] [address] EXAMINATION: Digital right diagnostic mammogram with 3-D tomography EXAM DATE/TIME: 05/26/2024 3:07 PM REASON FOR EXAM: post bx,abnormal mammogram COMPARISON: 04/15/2024. 04/27/2024 TECHNIQUE: Digital diagnostic mammography of the right breast was performed in addition to 3-D Tomosynthesis technique. . This study was read with the assistance of a computer-aided detection system. TISSUE DENSITY: There are scattered areas of fibroglandular density. FINDINGS: Biopsy clip within the upper outer quadrant of the anterior right breast. Nick Morrow MD MAMMO Final Result * (ABNORMAL) LIPID PANEL (05/11/2022 6:44 AM CDT) CHOLESTEROL 173 <200 MG/DL 05/11/2022 8:10 AM CDT [facility] TRIGLYCERIDES 148 <150 MG/DL 05/11/2022 8:10 AM CDT [facility] HDL 28(L) >40.0 MG/DL 05/11/2022 8:10 AM CDT [facility] LDL (CALCULATED) 115(H) <100 MG/DL 05/11/2022 8:10 AM CDT [facility] NON HDL CHOLESTEROL 145(H) <130 MG/DL 05/11/2022 8:10 AM CDT [facility] CHOL/HDL RATIO 6.2(H) 0.0 - 4.5 05/11/2022 8:10 AM CDT [facility] VLDL CALCULATION 30 5 - 55 MG/DL 05/11/2022 8:10 AM T [facility] LIPID INTERPRETATION 05/11/2022 8:10 AM CDT [facility] Comment: NIH CONCENSUS REPORT RECOMMENDATIONS: ADULT CHILD LOW RISK: CHOLESTEROL <200 <170 TRIGLYCERIDE <150 --- HDL >=60 --- LDL <100 <110 BORDERLINE: CHOLESTEROL 200-239 170-199 TRIGLYCERIDE 150-199 --- HDL 40-59 --- LDL 100-159 110-129 HIGH RISK: CHOLESTEROL >=240 >=200 TRIGLYCERIDE >=200 --- HDL <40 --- LDL >=160 >=130 05/11/2022 6:44 AM CDT Peg Potter MD LABORATORY Final Resu lt [facility] [address] [place] [address], from Last 3 Months or Most Recently Relevant to Health Maintenance Insurance MEDICAID Advance Directives * Full Code (Latest Code Status on File) Date Activated Date Inactivated Comments 05/10/2022 1:45 PM 05/11/2022 11:05 AM Care Teams Goodwill Ambassador Relationship Specialty Start Date End Date Rashaad Ramirez NP [address] [place] [address] PCP - General Nurse Practitioner Family 07/24/24 Wislon Yen MD [address] [place] [phone] Consulting Physician RADIATION ONCOLOGY 06/18/24
--- OUTSIDE RECORDS SUMMARY | 2024-10-11 14:25 | XMS_ITS | Referral Summary ---
Author Organization [facility] [address] [place] [phone] Care Team Providers Care Slate Worker Name Role Phone Rashaad Ramirez APRN Primary Care Provid er Encounters Date Type Department Care Team Description 10/08/2024 8:41 AM CDT - 10/08/2024 11:59 PM CDT Hospital Encounter [facility] Ultrasound [address] [place] [address] Encounter for screening for uncertain dates Discharge Disposition: Discharge to home or self care from Last 3 Months Allergies No known active allergies Social History Tobacco Use Types Packs/Day Years Used Date Smoking Tobacco: Never Assessed Comments Unknown Sex and Gender Information Value Date Recorded Sex Assigned at Not on file 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
--- OUTSIDE RECORDS SUMMARY | 2024-10-11 14:26 | XMS_ITS ---
Author Organization Unknown Address [address], [place] [id number] Phone Care Team Providers Care Bulk Mail Technician Name Role Phone IANCHALO ALLYSSA HERZOG Attending Unavailable Results CBC W DIFF - Collect Date/Ti me: 11/14/2021 10:22 [facility] ID: [id number] [address], [place], [id number] LOINC: 66022-4 Test Value Unit Reference Range Code Code System Flag WBC 10.6 10^3/uL L=3.7 H=10.9 RBC 5.17 10^6/uL L=3.50 H=5.30 HEMOGLOBIN 15.9 g/dL L=10.8 H=15.8 H HEMATOCRIT 46.0 % L=31.5 H=46.1 MCV 89 fl L=81 H=95 MCH 30.8 pg L=28.5 H=32.5 MCHC 34.6 g/dl L=28.0 H=40.0 RDW 39 fl L=36 H=52 PLT COUNT 337 10^3/uL L=140 H=450 LY% 29 % L=12 H=42 MO% 5 % L=1 H=13 NE% 62 % L=48 H=75 IG% 0 % L=0 H=1 EO% 3 % L=0 H=5 BA% 1 % L=0 H=2 LY# 3.05 10^3/uL L=0.40 H=3.40 MO# 0.50 10^3/uL L=0.15 H=1.20 NE# 6.62 10^3/ul L=1.10 H=7.90 IG# 0.04 10^3/uL L=0.00 H=0.10 EO# 0.36 10^3/uL L=0.00 H=0.50 BA# 0.06 10^3/uL L=0.00 H=0.10 MANUAL DIFF NOT INDICATED MORPHOLOGY LIPID PROFILE - Collect Date /Time: 11/14/2021 10:22 [facility] ID: [id number] [address] [place], [place], [id number] LOINC: Test Value Unit Reference Range Code Code System Flag TRIGLYCERIDE 267 mg/dl L=10 H=200 H CHOLESTEROL 244 mg/dl L=50 H=200 H HDL 37.0 mg/dl L=50.0 H=60.0 L LDL(CALC) 154 MG/DL L=10 H=160 COMPREHENSIVE METABOLIC PANE L - Collect Date/Time: 11/14/2021 10:22 [facility] ID: [id number] [address] [place], [place], [phone] LOINC: 54147-4 Test Value Unit Reference Range Code Code System Flag IS PATIENT FASTING? GLUCOSE 96 mg/dl L=70 H=100 2345-7 LOINC BUN 8 mg/dl L=6 H=20 CREATININE 0.79 mg/dl L=0.60 H=1.10 AGE 41 yrs eGFR 81 SODIUM 137 mmol/L L=133 H=145 POTASSIUM 4.4 mmol/L L=3.3 H=5.1 CHLORIDE 99 mmol/L L=96 H=108 ALK PHOS 73 U/L L=39 H=117 SGOT 23 U/L L=5 H=37 TOTAL BILI 0.5 mg/dl L=0.1 H=1.0 TOTAL PROTEIN 8.1 g/dl L=6.0 H=8.0 H ALBUMIN 5.4 g/dl L=3.2 H=5.2 H CALCIUM 10.4 mg/dl L=8.4 H=10.2 H CO2 26.4 mmol/L L=20.0 H=33.0 ANION GAP 16 mmol/L L=8 H=16 SGPT 27 U/L L=5 H=30 TSH - Collect Date/Time: 10:22 [facility] ID: [id number] [address] [place], [place], [phone] LOINC: 60703-9 Test Value Unit Reference Range Code Code System Flag TSH 4.10 uU/ml L=0.17 H=4.09 H Social History Type Status Start Date End Date Code Code Syst em Smoking History Current some day smoker [id number] SNOMED CT Sex Female Sexual Orientation Straight or Heterosexual [address] Gender Identity Female [id number] [address] Medications Medication Start Date End Date Route Frequency Dose Code Code System Medication Instructions Home Meds Lisinopril 20MG Oral Tablet 11/14/2021 04/15/2022 By Mouth Daily 1 TABLET 861636 RxNorm 1 TA BLET By Mouth Daily Desoximetasone 0.25% Topical application Cream 11/14/2021 11/16/2021 Topically Daily 1 SMALL AMOUNT 886422 RxNorm 1 SMALL AMOUNT Topically Daily As needed Clobetasol Propionate 0.05% Topical application Ointment 11/14/2021 04/02/2024 Topically Daily 1 SMALL AMOUNT 302993 RxNorm 1 SMALL AMOUNT Topically Daily As needed hydroCHLOROthia zide 25MG Oral Tablet 11/14/2021 04/15/2022 By mouth Daily 1 TABLET 072579 RxNorm TAKE 1 TABLET BY MOUTH DAILY Fluocinolone Acetonide 0.01% Topical application Oil 11/14/2021 Unknown Topically Daily 1 SMALL AMOUNT 2481969 RxNorm 1 SMALL AMOUNT Topically Daily Venlafaxine HCl 37.5MG Oral Capsule, Extended Release 11/14/2021 04/02/2024 By Mouth 1 CAPSULE 396685 RxNorm 2 CAPSULE By Mouth daily x's 1 week then one tablet daily until gone. Singulair 10MG Oral Tablet 11/14/2021 04/02/2024 By Mouth Daily 1 TABLET 253670 RxNorm 1 TA BLET By Mouth Daily Xyzal Allergy 24HR 5MG Oral Tablet 11/14/2021 Unknown By Mouth Daily 1 TABLET 538553 RxNorm 1 TABLET By Mouth Daily buPROPion HCl XL 300MG Oral Tablet, Extended Release, 24 HR 11/14/2021 04/02/2024 By Mouth Daily 1 TABLET 556633 RxNorm 1 TABLET By Mouth Daily Augmentin 875MG-125MG Oral Tablet 11/14/2021 11/26/2021 By Mouth Twice a day 1 TABLET 524502 RxNorm 1 TABLET By Mouth Twice a day As needed for 10 days Xyzal Allergy 24HR 5MG Oral Tablet 11/14/2021 11/26/2021 By Mouth Daily 1 TABLET 543021 RxNorm 1 TABLET By Mouth Daily Singulair 10MG Oral Tablet 11/14/2021 04/02/2024 By Mouth Daily 1 TABLET 621000 RxNorm 1 TA BLET By Mouth Daily Iron 325MG Oral Tablet 11/14/2021 04/02/2024 By Mouth Daily 1 TABLET RxNorm 1 TABLET By Mouth Daily Vitamin D 2000 IU Oral Capsule, Liquid Filled 11/14/2021 04/02/2024 By Mouth Daily 1 CAPSULE 144067 RxNorm 1 CAPSULE By Mouth Daily Multivitamin Oral Tablet 11/14/2021 Unknown By Mouth Daily 1 TABLET RxNorm 1 TABLE T By Mouth Daily Slynd 4 MG; NA Oral Tablet 11/14/2021 04/19/2022 By Mouth Daily 1 TABLET 8605488 RxNorm 1 TABLET By Mouth Daily Desoximetasone 0.25% Topical application Cream 11/16/2021 01/31/2023 Topically Daily 1 SMALL AMOUNT 878421 RxNorm 1 SMALL AMOUNT Topically Daily As needed Phentermine 15MG Oral Capsule 11/26/2021 01/31/2022 By Mouth Daily 1 CAPSULE 750294 RxNorm 1 CAPSULE By Mouth Daily Voltaren Gel 1% Topical application Gel/Jelly 11/26/2021 04/02/2024 Topically Every 6 hours 1 SMALL AMOUNT 364637 RxNorm 1 SMALL AMOUNT Topically Every 6 hours As needed Synthroid 25MCG Oral Tablet 11/26/2021 02/26/2022 By Mouth Daily 1 TABLET 775344 RxNorm 1 TA BLET By Mouth Daily Protonix 40 MG Oral Tablet, Delayed Release 11/26/2021 03/25/2022 By Mouth Daily 1 TABLET 965451 RxNorm 1 TABLET By Mouth Daily Phentermine 30MG Oral Capsule 01/03/2022 01/31/2022 By Mouth Daily 1 CAPSULE 636902 RxNorm 1 CAPSULE By Mouth Daily Phentermine 37.5MG Oral Tablet 01/31/2022 03/04/2022 By Mouth Daily 1 TABLET 457589 RxNorm 1 TABLET By Mouth Daily Synthroid 25MCG Oral Tablet 02/26/2022 06/13/2022 By Mouth Daily 1 TABLET 760800 RxNorm TAKE ONE TABLET BY MOUTH ONCE daily Phentermine 37.5MG Oral Tablet 03/04/2022 04/17/2022 By Mouth Daily 1 TABLET 786406 RxNorm 1 TABLET By Mouth Daily Protonix 40 MG Oral Tablet, Delayed Release 03/25/2022 04/02/2024 By Mouth Daily 1 TABLET 176146 RxNorm TAKE ONE TABLET BY MOUTH ONCE daily hydroCHLOROthia zide 25MG Oral Tablet 04/15/2022 04/02/2024 By mouth Daily 1 TABLET 164788 RxNorm 1 TABLET By mouth Daily Lisinopril 20MG Oral Tablet 04/15/2022 04/02/2024 By Mouth Daily 1 TABLET 886861 RxNorm 1 TA BLET By Mouth Daily Phentermine 37.5MG Oral Tablet 04/17/2022 Unknown By Mouth Daily 1 TABLET 521806 RxNorm 1 TABLET By Mouth Daily Slynd 4 MG; NA Oral Tablet 04/19/2022 04/02/2024 By Mouth Daily 1 TABLET 4035825 RxNorm 1 TABLET By Mouth Daily as directed Synthroid 25MCG Oral Tablet 06/13/2022 04/02/2024 By Mouth Daily 1 TABLET 503583 RxNorm TAKE ONE TABLET BY MOUTH ONCE daily Desoximetasone 0.25% Topical application Cream 01/31/2023 04/02/2024 Topically Daily 1 SMALL AMOUNT 950000 RxNorm 1 SMALL AMOUNT Topically Daily As needed NEED APPT FOR REFILLS hydroCHLOROthia zide 25MG Oral Tablet 04/02/2024 07/02/2024 By mouth Daily 1 TABLET 324032 RxNorm 1 TABLET By mouth Daily Lisinopril 20MG Oral Tablet 04/02/2024 07/02/2024 By Mouth Daily 1 TABLET 241432 RxNorm 1 TA BLET By Mouth Daily Protonix 40 MG Oral Tablet, Delayed Release 04/02/2024 09/27/2024 By Mouth Daily 1 TABLET 366748 RxNorm TAKE ONE TABLET BY MOUTH ONCE daily Desoximetasone 0.25% Topical application Cream 04/02/2024 04/06/2024 Topically Daily 1 SMALL AMOUNT 326954 RxNorm 1 SMALL AMOUNT Topically Daily As needed Synthroid 25MCG Oral Tablet 04/02/2024 07/02/2024 By Mouth Daily 1 TABLET 133290 RxNorm TAKE ONE TABLET BY MOUTH ONCE daily buPROPion HCl XL 300MG Oral Tablet, Extended Release, 24 HR 04/02/2024 05/06/2024 By Mouth Daily 1 TABLET 745629 RxNorm 1 TABLET By Mouth Daily Singulair 10MG Oral Tablet 04/02/2024 07/02/2024 By Mouth Daily 1 TABLET 793078 RxNorm 1 TA BLET By Mouth Daily Desoximetasone 0.25% Topical application Cream 04/06/2024 04/12/2024 Topically Daily 1 SMALL AMOUNT 724986 RxNorm 1 SMALL AMOUNT Topically Daily As needed Triamcinolone Acetonide 0.5% Topical application Cream 04/12/2024 07/02/2024 Topically Twice a day 1 SMALL AMOUNT 2833789 RxNorm 1 SMALL AMOUNT Topically Twice a day to affected areas. buPROPion HCl XL 300MG Oral Tablet, Extended Release, 24 HR 05/06/2024 07/02/2024 By Mouth Daily 1 TABLET 218830 RxNorm T PRASAD 1 TABLET BY MOUTH DAILY buPROPion HCl XL 300MG Oral Tablet, Extended Release, 24 HR 07/02/2024 Unknown By Mouth Daily 1 TABLET 374257 RxNorm TAKE 1 TABLET BY MOUTH DAILY Triamcinolone Acetonide 0.5% Topical application Cream 07/02/2024 Unknown Topically Twice a day 1 SMALL AMOUNT 5384947 RxNorm 1 SMALL AMOUNT Topically Twice a day to affected areas. Lisinopril 20MG Oral Tablet 07/02/2024 09/27/2024 By Mouth Daily 1 TABLET 276885 RxNorm 1 TA BLET By Mouth Daily Protonix 40 MG Oral Tablet, Delayed Release 07/02/2024 Unknown By Mouth Daily 1 TABLET 481461 RxNorm ALIZA E ONE TABLET BY MOUTH ONCE daily Synthroid 25MCG Oral Tablet 07/02/2024 Unknown By Mouth Daily 1 TABLET 433310 RxNorm TAKE ON E TABLET BY MOUTH ONCE daily hydroCHLOROthia zide 25MG Oral Tablet 07/02/2024 Unknown By mouth Daily 1 TABLET 677545 RxNorm 1 TABLET By mouth Daily Singulair 10MG Oral Tablet 07/02/2024 Unknown By Mouth Daily 1 TABLET 086499 RxNorm 1 TABLE T By Mouth Daily Lisinopril 20MG Oral Tablet 09/27/2024 Unknown By Mouth Daily 1 TABLET 713246 RxNorm TAKE 1 TABLET BY MOUTH EVERY DAY Protonix 40 MG Oral Tablet, Delayed Release 09/27/2024 Unknown By Mouth Daily 1 TABLET 614184 RxNorm ALIZA E 1 TABLET BY MOUTH DAILY Assessment You had the following problems:HTNECZEMAANXIETY DEPRESSIONOBESITYALLERGIC SKIN RASHPARONYCHIALEFT KNEE PAINHYPOTHYROIDISMGERDORAL CONTRACEPTIVEHEALTH CHECK UPSCREENING FOR CARDIOVASCULAR SYSTEM DISEASEBMI 35.0 TO 35.9MEDICATION MONITORINGABNORMAL MAMMOGRAMASYMMETRY OF BREAST APPEARANCECARCINOMA IN SITU OF RIGHT BREAST Hospital Discharge Instructions Should you have any questions prior to discharge, please contact a member of your healthcare team. If you have left the hospital and have any questions, please contact your primary care physician. Reason For Referral No Data Found Problems Problem Start Date Resolved Date Status Code Code System HTN active 76816550 SNOMED-CT ECZEMA active 37210900 SNOMED-CT ANXIETY DEPRESSION active 668427239 S NOMED-CT OBESITY active 437551466 SNOMED-CT ALLERGIC SKIN RASH active 53224402 S NOMED-CT PARONYCHIA active 25090577 SNOMED-CT LEFT KNEE PAIN active 607778855544036 SNOMED-CT HYPOTHYROIDISM active 21081139 SNOME D-CT GERD active 292527718 SNOMED-CT ORAL CONTRACEPTIVE active 1283884 S NOMED-CT HEALTH CHECK UP 04/02/2024 active 666190797 SNO MED-CT SCREENING FOR CARDIOVASCULAR SYSTEM DISEASE 04/02/2024 active 758391989 SNOMED-CT BMI 35.0 TO 35.9 04/02/2024 active 043051753 SN OMED-CT MEDICATION MONITORING 04/02/2024 active 2593523 01 SNOMED-CT ABNORMAL MAMMOGRAM 04/16/2024 active 748572368 SNOMED-CT ASYMMETRY OF BREAST APPEARANCE active 102075017 SNOMED-CT CARCINOMA IN SITU OF RIGHT BREAST 08/11/2024 active 062901741279044 SNOMED-CT Allergies and Adverse Reactions Allergy Substance Reaction Severity Start Date Concern Status Code Code System EFFEXOR XR Dizziness (SNOMED-CT: 699594118) Severe Active 713128 RxNorm No Known Drug Allergies Active 627044848 SNOMED-CT No Known Drug Allergies Active 077437489 SNOMED-CT No Known Allergies Active 390604718 SNOMED-CT Plan of Treatment Physical Wellness 04/14/2025 Encounters Encounter Diagnosis Start Date Code Code Sys tem Essential hypertension 11/14/2021 38958235 SNOME D-CT Personal Care Team Section Performer Name Performer Role Active Date Inactive Lv adams
--- OUTSIDE RECORDS SUMMARY | 2024-10-11 14:26 | XMS_ITS | Encounter Summary ---
Author Organization [facility] Address [address] [place] [address] Care Team Providers Care Business Intelligence Engineer Name Role Phone Yola Hancock DO Primary Care Provider + [phone] Wilson Yen MD Unavailable Rashaad Ramirez NP Primary Care Provider [phone] Encounter Details Date Type Department Care Team (Late st Contact Info) Description 01/17/2021 [facility] Documentation [facility] [address] Abstract, Doc [facility] Social History Tobacco Use Types Packs/Day Years Used Date Smoking Tobacco: Every Day Smokeless Tobacco: Never Alcohol Use Standard Drinks/Week Comments Never 0 (1 standard drink = 0.6 oz pur e alcohol) AUDIT-C Answer Date Recorded Q1: How often do you have a drink containing alc ohol? Never 11/29/2020 Average Number of Drinks Not on file 021 Frequency of Binge Drinking Not on file 11/2020 Comments Unknown Sex and Gender Information Value Date Recorded Sex Assigned at Female 09/28/2024 8:40 AM TRANSFER COORDINATOR Legal Sex Female 10:58 AM CDT Gender Identity Female 06/21/2022 6:13 AM TRANSFER COORDINATOR Sexual Orientation Straight 06/21/2022 6: 13 AM TRANSFER COORDINATOR COVID-19 Exposure Response Date Recorded In the last month, have you been in contact with someone who was confirmed or suspected to have Coronavirus / COVID-19? No / Unsure 01/10/2021 10:16 AM CDT documented as of this encounter Plan of Treatment Upcoming Encounters Date Type Department Care Team (Late st Contact Info) Description 02/07/2025 10:00 AM CDT Appointment [facility] [address] Nick Christina MD [address] [place] [phone] 02/07/2025 11:00 AM CDT Appointment [facility] [place] [address] Nick Christina MD [address] [place] [phone] documented as of this encounter Visit Diagnoses Not on filedocumented in this encounter Additional Health Concerns Infection Onset Date Last Indicated Resolved Time COVID-19 Rule Out 07/24/2024 07/24/2024 07/24/2024 3:12 PM TRANSFER COORDINATOR documented as of this encounter Care Teams Business Intelligence Engineer Relationship Specialty Start Date End Date Yola Hancock DO [address] [place] [address] PCP - General INTERNAL MEDICINE 11/20/20 07/23/24 Rashaad Ramirez NP [address] [place] [address] PCP - General Nurse Practitioner Family 07/24/24 Wilson Yen MD [address] [place] [address] Consulting Physician RADIATION ONCOLOGY 06/18/24 documented as of this encounter
--- OUTSIDE RECORDS SUMMARY | 2024-10-11 14:27 | XMS_ITS ---
Author Organization Unknown Address [address] [place], [place] [address] Phone Care Team Providers Care Composing Room Machinist Apprentice Name Role Phone EVA WILSON Attending Unavailable Results SCREENING DIGITAL BREAST PRIYANKA O *BI* MAMM - Completed: 04/15/2024 12:46 LOINC: Examination: Digital bilater al screening mammogram with 3D TomosynthesisAccession: [id number] Date/Time: 04/15/2024 12:25 PM Reason For Exam: No prior breast procedures. No personal history of breast cancer. Breast cancer in a sister at age 52 and mother at age 65. No current complaints.Comparison: Mammogram from 02/25/2023Technique: Digital screening mammography of both breasts was performed in addition to 3-D Tomosynthesis technique. This study was read with the assistance of a computer-aided detection system.Tissue density: The breast tissue contains scattered fibroglandular densities.Findings: Mole again seen in the left. Benign round calcifications bilaterally. Area of two-view asymmetry in the anterior depth tissue of the upper outer right breast. Questionable adjacent architectural distortion. Single view asymmetry in the left on MLO just behind the nipple. There is no additional focal asymmetry, dominant mass lesion, area of skin thickening, or cluster of suspicious appearing calcifications in either breast to suggest malignancy.===== IMPRESSION: =====1. Bilateral asymmetriesAssessment: ACR BI-RADS CATEGORY 0 - INCOMPLETE: NEEDS ADDITIONAL IMAGING EVALUATIONRecommendation:1: Follow-up diagnostic mammogram bilateralComments: Please obtain spot compression tomographic images of bilateral areas of focal asymmetry. Possible ultrasound to follow. Created and Electronically Signed by:Paul Khan MD04/16/2024 14:16 Social History Type Status Start Date End Date Code Code Syst em Smoking History Current some day smoker 157892012486047 SNOMED CT Sex Female Sexual Orientation Straight or Heterosexual [address] Gender Identity Female 62115753632615 [address] Medications Medication Start Date End Date Route Frequency Dose Code Code System Medication Instructions Home Meds Fluocinolone Acetonide 0.01% Topical application Oil 11/14/2021 Unknown Topically Daily 1 SMALL AMOUNT 1110387 RxNorm 1 SMALL AMOUNT Topically Daily Xyzal Allergy 24HR 5MG Oral Tablet 11/14/2021 Unknown By Mouth Daily 1 TABLET 588205 RxNorm 1 TABLET By Mouth Daily Multivitamin Oral Tablet 11/14/2021 Unknown By Mouth Daily 1 TABLET RxNorm 1 TABLET By Mouth Daily Phentermine 37.5MG Oral Tablet 04/17/2022 Unknown By Mouth Daily 1 TABLET 809376 RxNorm 1 TABLET By Mouth Daily hydroCHLOROthiazid e 25MG Oral Tablet 04/02/2024 07/02/20 24 By mouth Daily 1 TABLET 773345 RxNorm 1 TABLET By mouth Daily Lisinopril 20MG Oral Tablet 04/02/2024 07/02/20 24 By Mouth Daily 1 TABLET 820519 RxNorm 1 TABLET By Mouth Daily Protonix 40 MG Oral Tablet, Delayed Release 04/02/2024 09/28/19 25 By Mouth Daily 1 TABLET 145240 RxNorm TAKE ONE TABLET BY MOUTH ONCE daily Synthroid 25MCG Oral Tablet 04/02/2024 07/02/20 24 By Mouth Daily 1 TABLET 885543 RxNorm TAKE ONE TABLET BY MOUTH ONCE daily buPROPion HCl XL 300MG Oral Tablet, Extended Release, 24 HR 04/02/2024 05/06/20 24 By Mouth Daily 1 TABLET 595275 RxNorm 1 TABLET By Mouth Daily Singulair 10MG Oral Tablet 04/02/2024 07/02/20 24 By Mouth Daily 1 TABLET 507629 RxNorm 1 TABLET By Mouth Daily Triamcinolone Acetonide 0.5% Topical application Cream 04/12/2024 07/02/20 24 Topically Twice a day 1 SMALL AMOUNT 9279812 RxNorm 1 SMALL AMOUNT Topically Twice a day to affected areas. buPROPion HCl XL 300MG Oral Tablet, Extended Release, 24 HR 05/06/2024 07/02/20 24 By Mouth Daily 1 TABLET 677330 RxNorm TAKE 1 TABLET BY MOUTH DAILY buPROPion HCl XL 300MG Oral Tablet, Extended Release, 24 HR 07/02/2024 Unknown By Mouth Daily 1 TABLET 634024 RxNorm TAKE 1 TABLET BY MOUTH DAILY Triamcinolone Acetonide 0.5% Topical application Cream 07/02/2024 Unknown Topically Twice a day 1 SMALL AMOUNT 7895375 RxNorm 1 SMALL AMOUNT Topically Twice a day to affected areas. Lisinopril 20MG Oral Tablet 07/02/2024 09/28/19 25 By Mouth Daily 1 TABLET 154211 RxNorm 1 TABLET By Mouth Daily Protonix 40 MG Oral Tablet, Delayed Release 07/02/2024 Unknown By Mouth Daily 1 TABLET 039827 RxNorm TAKE ONE TABLET BY MOUTH ONCE daily Synthroid 25MCG Oral Tablet 07/02/2024 Unknown By Mouth Daily 1 TABLET 589300 RxNorm TAKE ONE TABLET BY MOUTH ONCE daily hydroCHLOROthiazid e 25MG Oral Tablet 07/02/2024 Unknown By mouth Daily 1 TABLET 526604 RxNorm 1 TABLET By mouth Daily Singulair 10MG Oral Tablet 07/02/2024 Unknown By Mouth Daily 1 TABLET 472689 RxNorm 1 TABLET By Mouth Daily Lisinopril 20MG Oral Tablet 09/27/2024 Unknown By Mouth Daily 1 TABLET 140658 RxNorm TAKE 1 TABLET BY MOUTH EVERY DAY Protonix 40 MG Oral Tablet, Delayed Release 09/27/2024 Unknown By Mouth Daily 1 TABLET 869030 RxNorm TAKE 1 TABLET BY MOUTH DAILY Assessment You [...] Date Status Code Code System HTN active 26844511 SNOMED-CT ECZEMA active 48234453 SNOMED-CT ANXIETY DEPRESSION active 598988042 S NOMED-CT OBESITY active 650382998 SNOMED-CT ALLERGIC SKIN RASH active 55346120 S NOMED-CT PARONYCHIA active 93405328 SNOMED-CT LEFT KNEE PAIN active 143274066355093 SNOMED-CT HYPOTHYROIDISM active 82717583 SNOME D-CT GERD active 586582658 SNOMED-CT ORAL CONTRACEPTIVE active 0299959 S NOMED-CT HEALTH CHECK UP 04/02/2024 active 638523276 SNO MED-CT SCREENING FOR CARDIOVASCULAR SYSTEM DISEASE 04/02/2024 active 156025300 SNOMED-CT BMI 35.0 TO 35.9 04/02/2024 active 108379667 SN OMED-CT MEDICATION MONITORING 04/02/2024 active 1180990 01 SNOMED-CT ABNORMAL MAMMOGRAM 04/16/2024 active 847465541 SNOMED-CT ASYMMETRY OF BREAST APPEARANCE active 152283814 SNOMED-CT CARCINOMA IN SITU OF RIGHT BREAST 08/11/2024 active 616168396974082 SNOMED-CT Allergies and Adverse Reactions Allergy Substance Reaction Severity Start Date Concern Status Code Code System EFFEXOR XR Dizziness (SNOMED-CT: 712211037) Severe Active 199426 RxNorm No Known Drug Allergies Active 484440080 SNOMED-CT No Known Drug Allergies Active 361953116 SNOMED-CT No Known Allergies Active 818196996 SNOMED-CT Plan of Treatment Physical Wellness 30 04/14/2025 Encounters Encounter Diagnosis Start Date Code Code Sys tem Body mass index 30+ - obesity 04/15/2024 042779748 SNOMED-CT Personal Care Team Section Performer Name Performer Role Active Date Inactive Da te Imaging Narrative Notes Laboratory Narrative Notes [facility] ORDER RESULTS EKG Final Scanned image
== END 2024-10-11 11:57 | disposition home or self-care (01) ==
PROVIDERS: Visit Provider Obstetrics & Gynecology Gynecology
DX: O26.851 Spotting complicating pregnancy, first trimester (principal); Z3A.00 Weeks of gestation of pregnancy not specified
CPT/HCPCS: 76801; 76817